=== PATIENT | male | born 1945 | race Caucasian/White ===

== ENCOUNTER 2018-06-19 10:08 | Emergency (ER) | payer OTHER ==
[2018-06-19 10:28] VITALS: BP 137/95
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
--- NOTE | 2018-06-19 12:20 | MR ---
MRI cervical spine Technique: T2 gradient echo axial images were obtained from above the C2-C3 disc inferiorly through the C7-T1 disc. T1 and T2-weighted sagittal images were obtained. Comparison: No previous cervical spine imaging. Findings: C2-C3: Posterior disc is preserved. No central canal stenosis or neural foraminal stenosis is seen. C3-C4: Posterior disc is preserved. Mild left-sided neural foraminal stenosis is seen. Right neural foramen is patent. No central canal stenosis is seen. C4-C5: Posterior disc is preserved. No central canal stenosis or neural foraminal stenosis is seen. C5-C6: Moderate disc space narrowing is seen. Diffuse posterior disc bulge with posterior spurring is noted. This slightly effaces a portion of the anterior thecal sac with no central canal stenosis being seen. Mild bilateral neural foraminal stenosis is seen. C6-C7: Moderate disc space narrowing is seen. Mild diffuse posterior disc bulge is seen with posterior spurring. No central canal stenosis is seen. Mild to moderate bilateral neural foraminal stenosis is seen. C7-T1: Posterior disc is preserved. No central canal stenosis or neural foraminal stenosis is seen. L1-L2 through L3-L4: Posterior discs are preserved. No central canal stenosis or neural foraminal stenosis is seen. Cervical cord shows no abnormal signal or mass. Impression: 1. Degenerative change as noted above. The degenerative change is most prominent at C5-C6 and C6-C7. Diagnostic code #3
== END 2018-06-19 13:19 | disposition home or self-care (01) ==
LOC: JD.ED 10:08
DX: M50.122 Cervical disc disorder at C5-C6 level with radiculopathy (principal); M50.123 Cervical disc disorder at C6-C7 level with radiculopathy; I48.91 Unspecified atrial fibrillation; Z79.899 Other long term (current) drug therapy; Z88.0 Allergy status to penicillin; Z88.6 Allergy status to analgesic agent
CPT/HCPCS: 72141; 72141-26; 93005; 93010; 99283; 99284-25

== ENCOUNTER 2020-09-01 08:39 | Day surgery (SDC) | payer OTHER, MEDICARE, BC ==
[~2020-09-01 08:39] MED LIST: Lactated Ringers 1,000 ML IV SCH; Lidocaine 1% 4 ML ONE; Lidocaine 1%/Sod Bicarbonate in NS 8.4% 1 ML Syringe IDERM PRN; Propofol 200 MG/20 ML SDV ONE; Sodium Chloride 0.9% 10 ML Syringe FLUSH PRN
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
[2020-09-01] MEDS ORDERED: fentaNYL 100 MCG/2 ML SDV ONE (09:43)
--- NOTE | 2020-09-01 10:19 | PCM48HPAN ---
Post Anesthesia Note - EVALUATION WITHIN 48HRS OF ANESTHETIC Vital Signs in Normal Range: Yes Patient Participated in Evaluation: Yes Respiratory Function Stable: Yes Airway Patent: Yes Cardiovascular Function Stable: Yes Hydration Status Stable: Yes Pain Control Satisfactory: Yes Nausea and Vomiting Control Satisfactory: Yes Mental Status Recovered: Yes Vital Signs: Last Vital Signs Temp 36.6 C 09/01/20 08:48 Pulse 87 09/01/20 08:48 Resp 16 09/01/20 08:48 BP 136/92 H 09/01/20 08:48 Pulse Ox 96 09/01/20 08:48
--- NOTE | 2020-09-01 10:23 | PCM.PRNOTE ---
- Free Text/Narrative Note: Date: 09/01/2020 Procedure: diagnostic esophagogastroduodenoscopy Indication: dysphagia Endoscopist: Kirill Joyce MD Findings: Small gastric polyp Detailed Report: The patient was taken to the endoscopy suite and placed in left lateral decubitus position. Timeout was performed and monitored anesthesia care was initiated. A bite-block was placed. The endoscope was inserted in the mouth and advanced to the distal duodenum. Duodenal mucosa appeared normal. A sample of mucosa was obtained from the duodenal bulb using cold forceps. Scope was withdrawn into the stomach. The pylorus appeared normal. There were no ulcers or gross inflammatory changes within the stomach. A biopsy of antral mucosa was obtained with cold forceps. The scope was retroflexed within the stomach and there was no evidence of hiatal hernia. A single subcentimeter polyp was identified in the fundus which was removed with cold forceps. The scope was withdrawn into the distal esophagus. The Z-line appeared relatively normal. Several biopsies of distal esophageal mucosa were obtained. The remainder of the esophagus looked normal as the scope was withdrawn. Prior to complete removal of the scope, air was suctioned from the stomach and esophagus. The patient tolerated the procedure well.
[2020-09-01 13:40] VITALS: BP 128/97; PULSE 73
== END 2020-09-01 11:18 | disposition home or self-care (01) ==
LOC: JD.SDS 08:39
PROVIDERS: ATTEND Surgery
DX: K31.7 Polyp of stomach and duodenum (principal); K20.90 Esophagitis, unspecified without bleeding; R13.10 Dysphagia, unspecified; E11.40 Type 2 diabetes mellitus with diabetic neuropathy, unspecified; I48.91 Unspecified atrial fibrillation; Z90.49 Acquired absence of other specified parts of digestive tract; Z98.890 Other specified postprocedural states; Z88.0 Allergy status to penicillin; Z88.8 Allergy status to other drugs, medicaments and biological substances; Z79.899 Other long term (current) drug therapy; Z79.01 Long term (current) use of anticoagulants; Z88.5 Allergy status to narcotic agent
CPT/HCPCS: 43239; 88305; J2704; J3010; J7120; 00731; 99100

== ENCOUNTER 2020-10-21 08:15 | Emergency (ER) | payer OTHER, MEDICARE, BC ==
[2020-10-21] MEDS ORDERED: Sodium Chloride 0.9% 10 ML Syringe FLUSH PRN (08:30)
[2020-10-21 08:37] VITALS: BP 110/79; PULSE 111
[2020-10-21] MEDS ORDERED: HYDROmorphone 0.5 MG/0.5 ML Syringe IVPUSH ONE (08:53)
--- NOTE | 2020-10-21 08:56 | CT ---
Head CT Technique: Multiple axial sections through the brain were obtained. Intravenous contrast was not utilized. Reconstructed coronal and sagittal images were obtained. Comparison: Prior head CT study of 11/03/18. Findings: Old infarct is noted within the left occipital lobe. This causes ex vacuole enlargement of the adjacent lateral ventricle. Small old infarct is noted within the right frontal region. Both ventricles are prominent in size as well as mild widening of the sulci over the convexities which is compatible with mild atrophy. Diffuse diminished density is noted within the periventricular and subcortical white matter which is most likely due to small vessel ischemic demyelination change. No other abnormal parenchymal densities are seen. No evidence of intracranial hemorrhage. No midline shift or mass-effect is seen. Bone window settings were reviewed which show nothing acute within the visualized paranasal sinuses or mastoid sinuses. No acute calvarial abnormality is appreciated. Impression: 1. 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 2. Small old infarct within the right frontal lobe. 3. Senescent change as noted above. 4. No acute abnormality is appreciated. Diagnostic code #3
[2020-10-21] MEDS ORDERED: LORazepam 2 MG/ML SDV IVPUSH ONE (11:04)
--- NOTE | 2020-10-21 12:03 | MR ---
MRI brain Technique: T1 sagittal; T2, T2 FLAIR, T1 and diffusion axial; T1 and T2 gradient echo axial and coronal images were also obtained. Comparison: Prior head CT study performed earlier on same day (8:33 AM) Findings: Ventricles along with basal cisterns and sulci over the convexities show generalized atrophy which is similar to prior CT study. Ex vacuole enlargement is seen within the posterior ventricle on the left side compatible with previous infarct within the occipital region. Small old infarct is noted within the posterior right frontal region. Prominent areas of increased signal are noted within the periventricular white matter compatible with diffuse small vessel ischemic demyelination change. There is a small acute diffusion abnormality being seen within what is felt to be the posterior left thalamus. No other diffusion abnormalities are seen. Impression: 1. Diffuse senescent change as noted above with areas of old infarcts. 2. Small acute diffusion abnormality is noted within the posterior left thalamus compatible with small and relatively acute infarct. Diagnostic code #3
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
[2020-10-21] MEDS ORDERED: Aspirin 81 MG Tab.Chew PO ONE (14:36)
== END 2020-10-21 15:10 | disposition home or self-care (01) ==
LOC: JD.ED 08:15
DX: I63.9 Cerebral infarction, unspecified (principal); E78.00 Pure hypercholesterolemia, unspecified; I48.91 Unspecified atrial fibrillation; I10 Essential (primary) hypertension; E11.9 Type 2 diabetes mellitus without complications; Z20.822 Contact with and (suspected) exposure to COVID-19; Z88.0 Allergy status to penicillin; Z88.8 Allergy status to other drugs, medicaments and biological substances; Z79.01 Long term (current) use of anticoagulants; Z79.899 Other long term (current) drug therapy
CPT/HCPCS: 36415; 70450; 70551; 80053; 82947; 84484; 85025; 85610; 85730; 87635; 93005; 96374; 96375; 99285; J1170; J2060; 93010; 99284; U0002

== ENCOUNTER 2023-10-31 23:11 | Emergency (ER) | payer BC, MEDICARE, OTHER ==
[2023-10-31 23:33] VITALS: PULSE 94
[2023-11-01 00:44] LABS: BASOPHILS PERCENT AUTO 0.4 % (0.0-1.0); EOSINOPHILS ABSOLUTE AUTO 0.1 K/mm3 (0.0-0.4); EOSINOPHILS PERCENT AUTO 1.2 % (0.0-6.0); HEMATOCRIT 39.6 % (42.0-52.0); HEMOGLOBIN 13.5 gm/dl (14.0-18.0); IMMATURE GRAN ABSOLUTE AUTO 0.03 K/mm3 (0.00-0.05); IMMATURE GRAN PERCENT AUTO 0.4 % (0.0-0.4); LYMPHOCYTES ABSOLUTE AUTO 2.5 K/mm3 (1.0-4.8); LYMPHOCYTES PERCENT AUTO 29.8 % (24.0-44.0); MEAN CORPUSCULAR HEMOGLOBIN 32.5 pg (28.0-32.0); MEAN CORPUSCULAR HGB CONC 34.1 g/dl (32.0-36.0); MEAN CORPUSCULAR VOLUME 95.2 fl (83.0-99.0); MEAN PLATELET VOLUME 10.9 fl (9.4-12.4); MONOCYTES ABSOLUTE AUTO 0.7 K/mm3 (0.0-0.8); NEUTROPHILS ABSOLUTE AUTO 4.9 K/mm3 (1.8-7.7); NEUTROPHILS PERCENT AUTO 59.2 % (41.0-71.0); PLATELET COUNT,PLT 131 K/mm3 (150-400); RED BLOOD CELL COUNT 4.16 M/mm3 (4.52-5.90); WHITE BLOOD CELL COUNT,WBC 8.22 K/mm3 (3.9-11.3)
[2023-11-01 00:58] LABS: CORONAVIRUS COVID-19 NAA NEGATIVE (NEGATIVE); INFLUENZA A NAA NEGATIVE (NEGATIVE); RESPIRATORY SYNCYTIAL VIR NAA NEGATIVE (NEGATIVE)
[2023-11-01 01:04] LABS: A/G RATIO 1.2 (1-2); ALANINE AMINOTRANSFERASE,ALT 39 U/L (16-63); ALBUMIN 3.4 g/dl (3.4-5.0); ALKALINE PHOSPHATASE 77 U/L (46-116); ASPARTATE AMNIOTRANSFERASE,AST 26 U/L (15-37); BILIRUBIN TOTAL 0.6 mg/dL (0.2-1.0); BLOOD UREA NITROGEN,BUN 23 mg/dL (7-18); BUN/CREATININE RATIO 17.7 (14-18); C-REACTIVE PROTEIN <0.05 mg/dL (<0.30); CARBON DIOXIDE,CO2 23 mEq/L (21-32); CHLORIDE,CL 107 mEq/L (98-107); CREATININE 1.3 mg/dL (0.7-1.3); ESTIMATED GFR 57 mL/min (>60); GLUCOSE RANDOM 95 mg/dL (70-99); LIPASE 48 U/L (16-77); MAGNESIUM 1.9 mg/dL (1.8-2.4); PROTEIN TOTAL,TP 6.2 g/dl (6.4-8.2); SODIUM,NA 139 mEq/L (136-145)
[2023-11-01 01:45] LABS: APPEARANCE,URINE CLEAR (Clear); BILIRUBIN,URINE NEGATIVE (Negative); COLOR,URINE YELLOW (Yellow); GLUCOSE,URINE NEGATIVE (Negative); KETONES,URINE NEGATIVE (Negative); LEUKOCYTE ESTERASE,URINE NEGATIVE (Negative); NITRITE,URINE NEGATIVE (Negative); OCCULT BLOOD,URINE NEGATIVE (Negative); PH,URINE 7.5 (5.0-8.0); PROTEIN,URINE NEGATIVE (Negative)
[2023-11-01] MEDS: Iopamidol 612 MG/ML 100 ML Bottle IVPUSH ONE (01:57)
[2023-11-01 06:18] VITALS: BP 121/77
== END 2023-11-01 04:03 | disposition home or self-care (01) ==
LOC: JD.ED 23:11
DX: R14.0 Abdominal distension (gaseous) (principal); I10 Essential (primary) hypertension; E11.9 Type 2 diabetes mellitus without complications; E78.00 Pure hypercholesterolemia, unspecified; Z88.0 Allergy status to penicillin; Z88.8 Allergy status to other drugs, medicaments and biological substances; Z79.899 Other long term (current) drug therapy; Z79.01 Long term (current) use of anticoagulants; Z90.49 Acquired absence of other specified parts of digestive tract
CPT/HCPCS: 0241U; 36415; 74177; 80053; 81003; 83690; 83735; 85025; 86140; 99285; Q9967; 99284

== ENCOUNTER 2023-12-13 06:02 | Emergency (ER) | payer OTHER ==
[2023-12-13] MEDS: Iopamidol 755 Mg/ML 100 ML Bottle IVPUSH ONE ×2 (06:22→08:49)
[2023-12-13 06:56] LABS: BASOPHILS PERCENT AUTO 0.2 % (0.0-1.0); HEMATOCRIT 39.2 % (42.0-52.0); HEMOGLOBIN 12.8 gm/dl (14.0-18.0); IMMATURE GRAN ABSOLUTE AUTO 0.09 K/mm3 (0.00-0.05); IMMATURE GRAN PERCENT AUTO 0.7 % (0.0-0.4); LYMPHOCYTES ABSOLUTE AUTO 0.4 K/mm3 (1.0-4.8); LYMPHOCYTES PERCENT AUTO 3.3 % (24.0-44.0); MEAN CORPUSCULAR HEMOGLOBIN 31.8 pg (28.0-32.0); MEAN CORPUSCULAR HGB CONC 32.7 g/dl (32.0-36.0); MEAN CORPUSCULAR VOLUME 97.5 fl (83.0-99.0); MEAN PLATELET VOLUME 10.6 fl (9.4-12.4); MONOCYTES ABSOLUTE AUTO 0.8 K/mm3 (0.0-0.8); MONOCYTES PERCENT AUTO 6.7 % (0.0-8.0); NEUTROPHILS ABSOLUTE AUTO 10.8 K/mm3 (1.8-7.7); NEUTROPHILS PERCENT AUTO 89.1 % (41.0-71.0); PLATELET COUNT,PLT 148 K/mm3 (150-400); RED BLOOD CELL COUNT 4.02 M/mm3 (4.52-5.90); WHITE BLOOD CELL COUNT,WBC 12.08 K/mm3 (3.9-11.3)
[2023-12-13 07:05] LABS: INR 1.18; PROTHROMBIN TIME 12.4 SECONDS (9.7-12.0)
[2023-12-13 07:06] LABS: PTT,PARTIAL THROMBOPLSTIN TIME 24.9 SECONDS (21.7-31.4)
[2023-12-13 07:28] LABS: APPEARANCE,URINE CLEAR (Clear); BILIRUBIN,URINE NEGATIVE (Negative); COLOR,URINE YELLOW (Yellow); GLUCOSE,URINE NEGATIVE (Negative); KETONES,URINE NEGATIVE (Negative); LEUKOCYTE ESTERASE,URINE NEGATIVE (Negative); NITRITE,URINE NEGATIVE (Negative); OCCULT BLOOD,URINE NEGATIVE (Negative); PROTEIN,URINE NEGATIVE (Negative); UROBILINOGEN,URINE 0.2 (0.2-1.0)
[2023-12-13 07:40] LABS: A/G RATIO 1.1 (1-2); ALBUMIN 3.3 g/dl (3.4-5.0); BILIRUBIN TOTAL 0.5 mg/dL (0.2-1.0); BUN/CREATININE RATIO 12.1 (14-18); CREATININE 1.4 mg/dL (0.7-1.3); EST CRCL DRUG DOSING (CG) 46.35 mL/min; MAGNESIUM 1.8 mg/dL (1.8-2.4); PROTEIN TOTAL,TP 6.2 g/dl (6.4-8.2)
[2023-12-13 07:41] VITALS: BP 133/67; PULSE 62
[2023-12-13 07:50] LABS: BARBITURATE SCREEN,URINE NEGATIVE (CUTOFF=200); BENZODIAZEPINES SCREEN,URINE NEGATIVE (CUTOFF=150); BUPRENORPHINE SCREEN,URINE NEGATIVE (CUTOFF=10); METHADONE SCREEN, URINE NEGATIVE (CUT0FF=200); METHAMPHETAMINES SCREEN, URINE NEGATIVE (CUTOFF=500); OXYCODONE SCREEN,URINE NEGATIVE (CUT0FF=100); THC SCREEN,URINE 20 NG/ML NEGATIVE (CUTOFF=50)
[2023-12-13] MEDS ORDERED: Dextrose 5%-0.45% NaCl 1,000 ML IV SCH (08:00)
[2023-12-13 08:02] LABS: AMPHETAMINES SCREEN, URINE NEGATIVE (CUTOFF=500)
[2023-12-13] MEDS: Sodium Chloride 0.9% 100 ML IV SCH (08:50)
[2023-12-13] MEDS: Sodium Chloride 0.9% 10 ML Syringe FLUSH PRN (08:50)
[2023-12-13] MEDS: Sodium Chloride 0.9% 500 ML IV ONE (09:11)
[2023-12-13] MEDS: Clindamycin Phosphate in D5W 900 MG in Premix Bag 1 BAG IV ONE (09:12)
== END 2023-12-13 11:19 ==
LOC: JD.ED 06:02
DX: I63.9 Cerebral infarction, unspecified (principal); I77.71 Dissection of carotid artery; R41.82 Altered mental status, unspecified; R82.5 Elevated urine levels of drugs, medicaments and biological substances; R09.02 Hypoxemia; R79.89 Other specified abnormal findings of blood chemistry; I48.91 Unspecified atrial fibrillation; E78.00 Pure hypercholesterolemia, unspecified; I10 Essential (primary) hypertension; Z90.49 Acquired absence of other specified parts of digestive tract; Z79.82 Long term (current) use of aspirin; Z79.899 Other long term (current) drug therapy; Z88.2 Allergy status to sulfonamides; Z88.8 Allergy status to other drugs, medicaments and biological substances
CPT/HCPCS: 36415; 70450; 70450-26; 70496; 70496-26; 70498; 70498-26; 71260; 71260-26; 74177; 74177-26; 80053; 80306; 80307; 81003; 82550; 83605; 83735; 83880; 84484; 85025; 85610; 85730; 87040; 93005; 93010; 96365; 99285; 99285-25; C1758; J0736; J3490; J7030; Q9967